=== PATIENT | male | born 1950 ===

== ENCOUNTER 2021-07-28 07:30 | Observation (INO) ==
[~2021-07-28 07:30] MED LIST: Buffered Lidocaine 1% SYRIN 1 ml INTRADERM ONE; Lactated Ringers 1000 ml BAG 1,000 ML IV SCH
[2021-07-28] MEDS ORDERED: fentaNYL 100 mcg/2 ml 50 MCG/ML VIAL IV PRN (08:35)
[2021-07-28] MEDS ORDERED: DiMENhydriNATE IV 50 mg/ml 1 ml VIAL IV PUSH PRN (08:35)
[2021-07-28] MEDS ORDERED: Naloxone 0.4 mg VIAL 0.4 mg/ml 1 ml VIAL IV PRN (08:35)
[2021-07-28] MEDS ORDERED: Lidocaine 2% PF 5 ML VIAL ONE ×2 (11:08→12:07)
[2021-07-28] MEDS ORDERED: Ondansetron 4 mg VIAL 2 MG/ML 2 ml VIAL ONE (11:08)
[2021-07-28] MEDS ORDERED: Dexamethasone IV 4 MG/ML VIAL 1 ml VIAL ONE (11:08)
[2021-07-28] MEDS ORDERED: Midazolam 2 mg/2 ml VIAL 1 mg/ml 2 ml VIAL (2 mg) ONE (11:09)
[2021-07-28] MEDS ORDERED: fentaNYL 100 mcg/2 ml 50 MCG/ML VIAL ONE (11:09)
[2021-07-28] MEDS ORDERED: ceFAZolin 2 GM PREMIX 2 GM/50 ML BAG ONE (11:20)
[2021-07-28] MEDS ORDERED: Dexmedetomidine 200 mcg/2 ml 2 ml VIAL (200 mcg) ONE (12:06)
[2021-07-28] MEDS ORDERED: ROPIVACAINE 5 MG/ML 30 ML BTL (0.5%) ONE (12:07)
[2021-07-28] MEDS ORDERED: Ropivacaine 5 MG/ML 20 ML VIAL 0.5% (100 MG) ONE (12:10)
[2021-07-28] MEDS ORDERED: Acetaminophen IV 1 GM/100ML VI 100 ML ONE (12:26)
[2021-07-28] MEDS ORDERED: Midazolam 5 mg/5 ml VIAL 1 mg/ml 5 ml VIAL (5 mg) ONE (12:29)
[2021-07-28] MEDS ORDERED: EPHEDrine (Pressors) 50 MG/ML VIAL ONE (13:43)
[2021-07-28] MEDS ORDERED: Ondansetron 4 mg VIAL 2 MG/ML 2 ml VIAL IV PRN (13:50)
[2021-07-28] MEDS ORDERED: diPHENhydraMINE IV 50 MG/ML 1 ml VIAL (BENADRYL) IV PRN (13:50)
[2021-07-28] MEDS ORDERED: diPHENhydraMINE 25 mg TAB PO PRN (13:50)
[2021-07-28] MEDS ORDERED: Magnesium Hydroxide LIQ 30 ML UDC PO PRN (13:50)
[2021-07-28] MEDS ORDERED: Ondansetron ODT 4 mg TAB 4 MG TAB PO PRN (13:50)
[2021-07-28] MEDS ORDERED: Lactulose 30 ml UDC PO PRN (13:50)
[2021-07-28] MEDS ORDERED: Lactated Ringers 1000 ml BAG 1,000 ML IV SCH (14:00)
[2021-07-28] MEDS ORDERED: Propofol 10 MG/ML 20 ML BTL ONE ×3 (14:18→15:22)
[2021-07-28] MEDS: Magnesium Hydroxide LIQ 30 ML UDC PO SCH (20:28)
[2021-07-28] MEDS: ceFAZolin 1 GM ADVAN 1 GM in NS 0.9% 50 ML 50 ML IVPB SCH (20:28)
[2021-07-29] MEDS: ceFAZolin 1 GM ADVAN 1 GM in NS 0.9% 50 ML 50 ML IVPB SCH ×2 (06:10→13:05)
[2021-07-29 06:45] LABS: Hematocrit 34 % (42-52); Hemoglobin 11.4 g/dL (14.0-18.0); Mean Platelet Volume 8.2 fL (7.4-10.4); Platelet Count 229 10^3/uL (150-450)
[2021-07-29 07:00] LABS: Calcium 8.5 mg/dL (8.6-10.3); Potassium 4.6 mmol/L (3.5-5.0); eGFR CKD-EPI 68.5 (>60)
[2021-07-29] MEDS ORDERED: Vitamin THERAPEUTIC TAB PO SCH (09:00)
[2021-07-29] MEDS: Magnesium Hydroxide LIQ 30 ML UDC PO SCH (09:28)
[2021-07-29 11:37] VITALS: BP 108/58
== END 2021-07-29 13:45 | disposition home or self-care (01) | DRG 470 ==
LOC: INTOOBSV 10:58 → AA 10:58 → SSU 18:53
PROVIDERS: ADMIT Orthopaedic Surgery Adult Reconstructive Orthopaedic Surgery; ATTEND Orthopaedic Surgery Adult Reconstructive Orthopaedic Surgery